=== PATIENT | male | born 1955 | race Caucasian/White ===

== ENCOUNTER 2024-12-07 11:17 | Emergency (ER) | payer MEDICARE, OTHER, SELFPAY ==
[2024-12-07 11:35] VITALS: BP 163/96
--- NOTE | 2024-12-07 11:41 | ED.GENMED ---
ED Provider Triage
<CINTHYA Jean - Last Filed: 12/07/24 11:44>
-
Patient seen by provider in Triage?: Seen in Triage
Attestation: A medical screening examination has been initiated by a qualified medical provider. Based on the assessment performed at this time, it has been determined that an emergent medical condition may exist and the patient has been informed
that further medical evaluation and possible additional diagnostic testing may be needed.
HPI: 69 yr old male c/o of right sided abd pain since 6: 30am. Pt was nauseous denies any vomiting. No fever. Denies radiation of pain.Pt states pain is more RUQ. He has never had pain before. Denies difficulty w/ urination. Nml bowel movement
today.
GENERAL: Alert , in no apparent distress
EYE: No visual abnormalities.
NECK: Trachea midline
ENT: No visible abnormalities.
LUNGS: No acute respiratory distress
NEUROLOGICAL: Alert and oriented
SKIN: Skin intact. No visible changes.
MUSCULOSKELETAL: Moving extremities normally
PSYCH: Normal and appropriate interaction.
This is a medical evaluation conducted in person to initiate diagnostic evaluation and provide initial therapeutics. Please see further documentation by the treating clinician.
History of Present Illness
<CINTHYA Jean - Last Filed: 12/07/24 11:44>
General
Chief Complaint: Abdominal Pain
Time Seen by Provider: 12/07/24 12:40
<Reggie Davey DO - Last Filed: 12/07/24 15:58>
General
Source: patient
Exam Limitations: none
Nursing documentation reviewed up to this point in time: agreed with
History of Present Illness
History of Present Illness:
69-year-old male presents emergency department complaining of right sided abdominal pain since this morning. He has had this happen before. Denies any nausea vomiting diarrhea or chest pain.
Past History
<Reggie Davey DO - Last Filed: 12/07/24 15:58>
Past History
ED Past Medical History: Cancer (Prostate, bladder) and Psychiatric (Anxiety)
ED Past Surgical History: Other (Hernia, cataracts)
Social History
Tobacco: Non-smoker
Alcohol: None
Drug: None
Living: with family
Review of Systems
<Reggie Davey, DO - Last Filed: 12/07/24 15:58>
Review of Systems
Allergies reviewed?: Yes
All Other Systems: Not applicable
Constitutional: Reports no symptoms
EENT: Reports no symptoms
Respiratory: Reports no symptoms
Cardiac: Reports no symptoms
ABD/GI: Reports abdominal pain
: Reports no symptoms
Musculoskeletal: Reports no symptoms
Skin: Reports no symptoms
Neurological: Reports no symptoms
Endocrine: Reports no symptoms
Hematologic/Lymphatic: Reports no symptoms
Psychiatric: Reports no symptoms
Phy Exam
<Reggie Davey, DO - Last Filed: 12/07/24 15:58>
Physical Exam
Physical Exam:
Physical Exam
General: no apparent distress, not acutely ill
Neck: supple. no meningeal signs. normal posterior pharynx
Heart: s1/s2 regular rate and rhythm, no murmur. equal radial
pulses.
HEENT: Pupils equal round reactive to light, EOMI
Lungs: no acute respiratory distress. clear bilaterally
Abdomen: normal bowel sounds., Mild right flank tenderness. no CVAT
Neuro: alert and oriented. no focal neurological deficits cranial nerves II through XII intact
Skin: no rash
Psychiatric: well kept. interactive and cooperative
Extremities: no edema. no calf tenderness. negative homans. good distal pulses
Course
<CINTHYA Jean - Last Filed: 12/07/24 11:44>
Orders/Labs/Results
Orders:
Orders
12/07/24 11:42
Complete Blood Count/With Diff Urgent
Comprehensive Metabolic Panel Urgent
Lipase Urgent
12/07/24 11:43
US Abdomen Complete/Upper Urgent
Comment:
Reason For Exam: ruq pain
12/07/24 11:44
Electrocardiogram (*1) Stat
Reason for Study: Other
Other Reason for Exam: chest pain
EKG- Treatment ONCE
12/07/24 13:05
CT Abd/pelvis W Iv Cont Urgent
Comment:
Reason For Exam: right flank pain
12/07/24 15:29
Morphine Sulfate 4 mg IV NOW STA
Ondansetron Injectable [Zofran] 4 mg IV NOW STA
12/07/24 15:53
HYDROmorphone [Dilaudid] 1 mg IV NOW STA
12/07/24 16:48
Urinalysis Reflex To Culture Urgent
Date Specimen was Collected: 12/07/24
Time Specimen was Collected: 16:47
Urine Microscopic Reflex Cult Urgent
12/07/24 17:27
Tamsulosin [Flomax] 0.4 mg PO NOW STA
Abnormal Lab Results
12/07/24 12/07/24
11:42 16:48
Absolute Neuts (auto) 7.4 H 10^3/uL
(1.4-6.5)
Absolute Lymphs (auto) 0.8 L 10^3/uL
(1.2-3.4)
Neutrophils % 86.3 H %
(42.2-75.2)
Lymphocytes % 9.1 L %
(20.5-51.1)
Glucose 140 H mg/dl
(70-99)
Urine Ketones Trace A
(Negative)
Ur Occult Blood Reflex 4+ A
(Negative)
Urine RBC 16-20 A /HPF
(0-2)
Urine Bacteria (Reflex) Few A
(Negative)
12/07/24 11:42
12/07/24 11:42
Vital Signs
Initial and Last Documented VS:
Initial Vital Signs
Temp Pulse Resp BP Pulse Ox
98.5 F 65 15 163/96 98
12/07/24 11:35 12/07/24 11:35 12/07/24 11:35 12/07/24 11:35 12/07/24 11:35
Last Documented Vital Signs
Temp Pulse Resp BP Pulse Ox
98.5 F 63 20 161/99 100
12/07/24 11:35 12/07/24 15:36 12/07/24 15:36 12/07/24 15:36 12/07/24 15:36
<Reggie Davey, DO - Last Filed: 12/07/24 15:58>
Orders/Labs/Results
Orders:
Orders
12/07/24 11:42
Complete Blood Count/With Diff Urgent
Comprehensive Metabolic Panel Urgent
Lipase Urgent
12/07/24 11:43
US Abdomen Complete/Upper Urgent
Comment:
Reason For Exam: ruq pain
12/07/24 11:44
Electrocardiogram (*1) Stat
Reason for Study: Other
Other Reason for Exam: chest pain
EKG- Treatment ONCE
12/07/24 13:05
CT Abd/pelvis W Iv Cont Urgent
Comment:
Reason For Exam: right flank pain
12/07/24 15:29
Morphine Sulfate 4 mg IV NOW STA
Ondansetron Injectable [Zofran] 4 mg IV NOW STA
12/07/24 15:53
HYDROmorphone [Dilaudid] 1 mg IV NOW STA
12/07/24 16:48
Urinalysis Reflex To Culture Urgent
Date Specimen was Collected: 12/07/24
Time Specimen was Collected: 16:47
Urine Microscopic Reflex Cult Urgent
12/07/24 17:27
Tamsulosin [Flomax] 0.4 mg PO NOW STA
Abnormal Lab Results
12/07/24 12/07/24
11:42 16:48
Absolute Neuts (auto) 7.4 H 10^3/uL
(1.4-6.5)
Absolute Lymphs (auto) 0.8 L 10^3/uL
(1.2-3.4)
Neutrophils % 86.3 H %
(42.2-75.2)
Lymphocytes % 9.1 L %
(20.5-51.1)
Glucose 140 H mg/dl
(70-99)
Urine Ketones Trace A
(Negative)
Ur Occult Blood Reflex 4+ A
(Negative)
Urine RBC 16-20 A /HPF
(0-2)
Urine Bacteria (Reflex) Few A
(Negative)
12/07/24 11:42
12/07/24 11:42
Vital Signs
Initial and Last Documented VS:
Initial Vital Signs
Temp Pulse Resp BP Pulse Ox
98.5 F 65 15 163/96 98
12/07/24 11:35 12/07/24 11:35 12/07/24 11:35 12/07/24 11:35 12/07/24 11:35
Last Documented Vital Signs
Temp Pulse Resp BP Pulse Ox
98.5 F 63 20 161/99 100
12/07/24 11:35 12/07/24 15:36 12/07/24 15:36 12/07/24 15:36 12/07/24 15:36
<Nickie Gutierrez MD - Last Filed: 12/07/24 17:43>
Orders/Labs/Results
Orders:
Orders
12/07/24 11:42
Complete Blood Count/With Diff Urgent
Comprehensive Metabolic Panel Urgent
Lipase Urgent
12/07/24 11:43
US Abdomen Complete/Upper Urgent
Comment:
Reason For Exam: ruq pain
12/07/24 11:44
Electrocardiogram (*1) Stat
Reason for Study: Other
Other Reason for Exam: chest pain
EKG- Treatment ONCE
12/07/24 13:05
CT Abd/pelvis W Iv Cont Urgent
Comment:
Reason For Exam: right flank pain
12/07/24 15:29
Morphine Sulfate 4 mg IV NOW STA
Ondansetron Injectable [Zofran] 4 mg IV NOW STA
12/07/24 15:53
HYDROmorphone [Dilaudid] 1 mg IV NOW STA
12/07/24 16:48
Urinalysis Reflex To Culture Urgent
Date Specimen was Collected: 12/07/24
Time Specimen was Collected: 16:47
Urine Microscopic Reflex Cult Urgent
12/07/24 17:27
Tamsulosin [Flomax] 0.4 mg PO NOW STA
Abnormal Lab Results
12/07/24 12/07/24
11:42 16:48
Absolute Neuts (auto) 7.4 H 10^3/uL
(1.4-6.5)
Absolute Lymphs (auto) 0.8 L 10^3/uL
(1.2-3.4)
Neutrophils % 86.3 H %
(42.2-75.2)
Lymphocytes % 9.1 L %
(20.5-51.1)
Glucose 140 H mg/dl
(70-99)
Urine Ketones Trace A
(Negative)
Ur Occult Blood Reflex 4+ A
(Negative)
Urine RBC 16-20 A /HPF
(0-2)
Urine Bacteria (Reflex) Few A
(Negative)
12/07/24 11:42
12/07/24 11:42
Vital Signs
Initial and Last Documented VS:
Initial Vital Signs
Temp Pulse Resp BP Pulse Ox
98.5 F 65 15 163/96 98
12/07/24 11:35 12/07/24 11:35 12/07/24 11:35 12/07/24 11:35 12/07/24 11:35
Last Documented Vital Signs
Temp Pulse Resp BP Pulse Ox
98.5 F 63 20 161/99 100
12/07/24 11:35 12/07/24 15:36 12/07/24 15:36 12/07/24 15:36 12/07/24 15:36
<Reggie Davey DO - Last Filed: 12/07/24 15:58>
MDM/Problems Addressed
Differential Diagnosis Includes:
Kidney stone, UTI
MDM/Problems Addressed:
69-year-old male with right flank pain. CT abdomen pelvis pending. Urinalysis pending.
<Reggie Davey DO - Last Filed: 12/07/24 15:58>
*Radiology
Radiology exam reviewed: radiology read reviewed (Ultrasound abdomen no acute findings)
*Pulse Oximetry
Patient hypoxic: no
<Nickie Gutierrez MD - Last Filed: 12/07/24 17:43>
*Critical Care Note
Total Time (30-74mins, 75-104mins- exclusive of procedures): Not Applicable
<Nickie Gutierrez MD - Last Filed: 12/07/24 17:43>
Update Note
Update Note:
5:45 PM CAT scan confirms 3 mm right UVJ stone. Patient reevaluated by me. Appears comfortable and well. We went over CT findings and patient will go home with a copy of his CAT scan to show his own urologist. He understands that he should only
use the oxycodone if the pain becomes severe. Patient also started on Flomax. There is no sign of renal failure or UTI.
ED Attending Note
<CINTHYA Jean - Last Filed: 12/07/24 11:44>
-
Portions of this chart may have been created with voice recognition software.� Occasional wrong word or��sound alike� substitutions may have occurred due to the inherent limitations of voice recognition software.
Discharge Plan
Departure
Patient Disposition: Home (Routine Discharge)
Date of Disposition: 12/07/24
Time of Disposition: 17:28
Patient with high blood pressure during this ER visit?: Yes
Condition: Good
Covid-19: Not Applicable
Discharge Problem:
Renal colic
Instructions: Renal Colic (DC), BLOOD PRESSURE
Prescriptions:
New
tamsulosin [Flomax] 0.4 mg capsule
0.4 mg PO DAILY Qty: 7 0RF
oxycodone 5 mg capsule
5 mg PO Q8H PRN (Reason: Pain) Qty: 7 0RF
Referrals:
Richard Rivera, DO [Family Provider] -
Activity Restrictions/Additional Instructions:
Please call your urologist tomorrow and set up an appointment to see your urologist in 7 to 10 days. You can take 1000 mg of Tylenol every 4-6 hours for pain. If the pain becomes severe, you could also take oxycodone. Please take the Flomax once
a day for 1 week.
Interventions
Interventions:
*Risk Screen - Suicide Last Done: 12/07/24 11:35
*General Assessment Last Done: 12/07/24 11:35
*Neglect/Abuse Screening Last Done: 12/07/24 11:35
ED- Fall Risk Assessment Last Done: 12/07/24 12:58
*ED COVID-19 Vaccine History Last Done: 12/07/24 11:35
QN-Vfqukq-Qxhvntomko Assessment Last Done: 12/07/24 12:58
Discharge Date and Time
Print Language: MACEDONIAN
[2024-12-07 12:06] LABS: % Basophils 0.4 % (0-2); % Eosinophils 0.4 % (0-6); % Immature Granulocytes 0.2 % (0-0.5); % Lymphocytes 9.1 % (20.5-51.1); % Monocytes 3.6 % (1.7-9.3); % Neutrophils 86.3 % (42.2-75.2); Absolute Lymphocytes 0.8 10^3/uL (1.2-3.4); Absolute Monocytes 0.3 10^3/uL (0.1-0.6); Absolute Neutrophils 7.4 10^3/uL (1.4-6.5); Hematocrit 42.8 % (39.0-52.0); Hemoglobin 14.2 g/dL (13.0-18.0); Mean Corp Hgb Conc. 33.2 g/dL (33.0-37.0); Mean Corpuscular Hgb 28.6 pg (27.0-31.0); Mean Corpuscular Volume 86.1 fL (80.0-94.0); Mean Platelet Volume 10.3 fL (7.4-10.4); Nucleated Red Blood Cells % 0 % (-); Platelet Count 247 10^3/uL (130-400); Red Blood Cell Count 4.97 10^6/uL (4.70-6.10); Red Cell Dist. Width 13.2 % (11.5-14.5); White Blood Cell Count 8.5 10^3/uL (4.8-10.8)
[2024-12-07 12:13] LABS: ALT (SGPT) 28 U/L (0-50); AST (SGOT) 28 U/L (17-59); Albumin 4.9 g/dl (3.5-5.0); Alkaline Phosphatase 82 U/L (38-126); Blood Urea Nitrogen 19 mg/dl (9-20); Calcium 9.6 mg/dl (8.4-10.2); Carbon Dioxide 27 mmol/L (22-30); Chloride 103 mmol/L (98-107); Glucose 140 mg/dl (70-99); Lipase 282 U/L (23-300); Potassium 4.7 mmol/L (3.5-5.1); Sodium 140 mmol/L (135-145); Total Bilirubin 0.7 mg/dl (0.2-1.3); Total Protein 7.8 g/dl (6.3-8.2); eGFR > 60.00
[2024-12-07] MEDS: ZOFRAN 4 MG IV (15:34)
[2024-12-07] MEDS: MORPHINE SULFATE 4 MG IV (15:34)
[2024-12-07 15:36] VITALS: BP 161/99; BMI 32.9
[2024-12-07] MEDS: DILAUDID 1 MG IV (15:57)
[2024-12-07 17:06] LABS: Urine Albumin Trace (Neg - Trace); Urine Bilirubin Negative (Negative); Urine Character Clear (Clear); Urine Color Yellow; Urine Glucose Negative (Negative); Urine Ketone Trace (Negative); Urine Leukocyte Negative (Negative); Urine Nitrite Negative (Negative); Urine Occult Blood 4+ (Negative); Urine Specific Gravity 1.015 (<1.030); Urine Urobilinogen Negative (Neg - 1+)
[2024-12-07 17:14] LABS: Urine Squamous Cell 0-2 /LPF (Few)
[2024-12-07 17:15] LABS: Urine Bacteria Few (Negative); Urine Red Blood Cell 16-20 /HPF (0-2); Urine White Cell 0-2 /HPF (0-5)
[2024-12-07] MEDS: FLOMAX 0.4 MG PO (17:38)
[2024-12-07 17:43] VITALS: BP 144/93
== END 2024-12-07 17:48 | disposition home or self-care (01) ==
LOC: EMR 11:17
PROVIDERS: EMERGENCY PHYSICIAN Emergency Medicine; FAMILY PHYSICIAN Family Medicine
DX: N13.2 Hydronephrosis with renal and ureteral calculous obstruction (principal); R03.0 Elevated blood-pressure reading, without diagnosis of hypertension
CPT/HCPCS: 99285; 96374; 96375 ×2; 74177; 76700; 80053; 81003; 81015; 83690; 85025; 93005; Q9967